=== PATIENT | male | born 2005 | race Caucasian/White ===

== ENCOUNTER → 2025-05-07 | Outpatient (CLI) | payer OTHER ==
--- NOTE | 2025-05-07 13:22 | EKG ---
[facility] Test Date: 2025-05-07 Test Time: 10:52:40 Pat Name: RAZ HERNANDEZ Department: LAB Room: Gender: M Lens Examiner: [id number] : 2005 Requested By: CAT BIRMINGHAM Order Number: [id number] Reading MD: Rosalba Panchal Measurements Intervals [place] Rate: 71 P: 38 FL: 115 QRS: 69 QRSD: 100 T: 57 QT: 364 QTc: 394 Interpretive Statements Sinus rhythm No previous ECG available for comparison Electronically Signed On 05-07-2025 15:55:07 CDT by Rosalba Panchal Please click the below link to view image of tracing.
== END | disposition home or self-care (01) ==
LOC: LAB 10:28
PROVIDERS: ATTEND Psychiatry & Neurology Psychiatry
DX: Z79.899 Other long term (current) drug therapy (principal)
CPT/HCPCS: 93005